=== PATIENT | male | born 1990 | race Caucasian/White ===

== ENCOUNTER 2018-08-13 21:28 | Emergency (ER) | payer SELFPAY ==
--- NOTE | 2018-08-13 23:36 | ER Document Report ---
ED Medical Screen (RME) - General Chief Complaint: Testicular Lump Stated Complaint: LUMP Time Seen by Provider: 08/13/18 23:34 Notes: Patient is a 28-year-old male presents to the emergency department complaining of swelling to the left upper testicle. Patient states he noticed the swelling this afternoon while in the shower. Patient is denying any pain or discomfort and is also denying any dysuria or penile discharge. Past medical history: None Medications: None Allergies: None Physical exam: Swelling noted to the top of the left scrotum near patient's inguinal crease. I have greeted and performed a rapid initial assessment of this patient. A comprehensive ED assessment and evaluation of the patient, analysis of test results and completion of the medical decision making process will be conducted by additional ED providers. TRAVEL OUTSIDE OF THE [place] IN LAST 30 DAYS: No
--- NOTE | 2018-08-14 02:43 | RADIOLOGY REPORT (SQ) ---
CLINICAL HISTORY: left upper scrotal swelling COMPARISON: None. TECHNIQUE: US SCROTUM on 08/13/2018 11:34 PM [employer] FINDINGS: Right testicle measures 4.9 x 3.1 x 2.1 cm and is normal in echotexture with patent flow. The epididymis measures 1.2 cm. Left testicle measures 4.5 x 3.9 x 1.9 cm and is normal in echotexture with patent flow. There is a tiny calcification within the lateral midpole. The epididymis measures 1.5 cm. The epididymis is slightly prominent in the area of the palpable lump. IMPRESSION: Slightly prominent left epididymis without a focal mass or hypervascularity. No evidence of testicular mass or torsion.
[2018-08-14] MEDS ORDERED: LIDOCAINE 1% INJ-PF (10 MG/ML) 30 ML SDV INJ ONE (03:10)
[2018-08-14] MEDS ORDERED: AZITHROMYCIN 250 MG TABLET PO ONE (03:10)
[2018-08-14] MEDS ORDERED: CEFTRIAXONE INJ 250 MG VIAL IM ONE (03:10)
--- NOTE | 2018-08-14 03:11 | ER Document Report ---
HPI - HPI Patient complains to provider of: left testicular swelling Time Seen by Provider: 08/13/18 23:34 Pain Level: 2 Context: Patient is a 28-year-old male presents to the emergency department complaining of swelling to the left upper testicle. Patient states he noticed the swelling this afternoon while in the shower. Patient is denying any pain or discomfort and is also denying any dysuria or penile discharge. Past medical history: None Medications: None Allergies: None - DERM Skin Color: Normal Past Medical History - General Information source: Patient - Social History Smoking Status: Current Every Day Smoker Chew tobacco use (# tins/day): No Frequency of alcohol use: None Drug Abuse: None Family History: Reviewed & Not Pertinent Patient has suicidal ideation: No Patient has homicidal ideation: No Renal/ Medical History: Denies: Hx Peritoneal Dialysis Vertical Provider Document - CONSTITUTIONAL Agree With Documented VS: Yes Notes: GENERAL: Alert, interacts well. No acute distress. HEAD: Normocephalic, atraumatic. EYES: Pupils equal, round, and reactive to light. Extraocular movements intact. ENT: Oral mucosa moist, tongue midline. NECK: Full range of motion. Supple. Trachea midline. LUNGS: Clear to auscultation bilaterally, no wheezes, rales, or rhonchi. No respiratory distress. HEART: Regular rate and rhythm. No murmur ABDOMEN: Soft, non-tender. Non-distended. Bowel sounds present in all 4 quadr ants. EXTREMITIES: Moves all 4 extremities spontaneously. No edema, normal radial and dorsalis pedis pulses bilaterally. No cyanosis. BACK: no cervical, thoracic, lumbar midline tenderness. No saddle anesthesia, normal distal neurovascular exam. NEUROLOGICAL: Alert and oriented x3. Normal speech. cranial nerves II through XII grossly intact PSYCH: Normal affect, normal mood. SKIN: Warm, dry, normal turgor. No rashes or lesions noted. Groin: Minor swelling noted top of left scrotum, near inguinal crease. painful non-erythematous, non-ecchymotic. - INFECTION CONTROL TRAVEL OUTSIDE OF THE [place] IN LAST 30 DAYS: No Course - Re-evaluation Re-evalutation: We will treat this patient for acute epididymitis. Discussed treatment modalities in the emergency room, patient is agreement with treatments. Discussed follow-up with primary care provider. Patient voices understanding is stable for discharge. Discharge - Discharge Clinical Impression: Epididymitis, left Condition: Stable Disposition: HOME, SELF-CARE Instructions: Anti-Inflammatory Medication ([facility]), Epididymitis ([facility]) Additional Instructions: As we discussed you have been seen and treated in the emergency department for epididymitis. This is an infection of part of your scrotum. You have already been treated with antibiotics in the emergency department. There is no need to continue taking any medications. Please take [id number] Tylenol, Motrin for any pain or discomfort. Please wear supportive undergarments and apply ice as needed. Please return to the emergency room for any other concerning symptoms.
[2018-08-14 03:43] VITALS: BP 121/72
== END 2018-08-14 03:44 | disposition home or self-care (01) ==
LOC: ER 21:28
DX: N45.1 Epididymitis (principal); F17.200 Nicotine dependence, unspecified, uncomplicated
CPT/HCPCS: 99284; 96372; 76870; 93976; J3490; J0696